=== PATIENT | female | born 1940 | race Caucasian/White ===

== ENCOUNTER 2017-10-18 19:54 | Emergency (ER) | payer MEDICARE ==
[~2017-10-18] VITALS: Ht 152.4 cm; Wt 72.6 kg
[~2017-10-18 19:54] MED LIST: BENAML10/2 PO; BP MEDS; CYCL10 PO; Glucagon Emergen1 MG; HYDACE5 PO; HYDR1TAB94; INSLIS75I SC; LISI20; METF500; METO50 PO; NEBI5; NITR100CA PO; Nitrostat0.4 MG; OMEP20ER; OXYC10ER PO; Oxybutynin Chlo15 MG; SERT100; [UNRECOGNIZED DRUG - REMARK]
[2017-10-18 21:30] LABS: BASOPHILS ABSOLUTE AUTO 0.02 K/mm3 (0.00-0.23); BASOPHILS PERCENT AUTO 0 % (0-2); EOSINOPHILS ABSOLUTE AUTO 0.03 K/mm3 (0.00-0.68); EOSINOPHILS PERCENT AUTO 0 % (0-6); Hematocrit 38.3 % (33.0-51.0); IMMATURE GRAN ABSOLUTE AUTO 0.05 K/mm3 (0.00-0.10); IMMATURE GRAN PERCENT AUTO 1 % (0-1); LYMPHOCYTES ABSOLUTE AUTO 1.87 K/mm3 (0.84-5.20); LYMPHOCYTES PERCENT AUTO 23 % (21-46); MONOCYTES PERCENT AUTO 6 % (4-13); Mean Corpuscular HGB 29.5 pg (26.0-34.0); Mean Corpuscular HGB Conc 33.9 g/dL (31.5-36.5); Mean Corpuscular Volume 87 fL (80-100); Mean Platelet Volume 10.9 fL (9.1-12.4); NEUTROPHILS ABSOLUTE AUTO 5.67 K/mm3 (1.96-9.15); NEUTROPHILS PERCENT AUTO 70 % (41-73); Platelet Count 219 K/mm3 (150-400); RDW Coefficient Variation 13.4 % (11.7-14.2); RDW Standard Deviation 42.4 fL (35.1-46.3); Red Blood Cell Count 4.41 M/mm3 (3.80-5.20); White Blood Cell Count 8.14 K/mm3 (4.00-11.30)
[2017-10-18 21:52] LABS: Alanine Aminotransfer (ALT/SGP 20 U/L (12-78); Albumin, Blood 3.2 g/dL (3.4-5.0); Albumin/Globulin Ratio 0.8 (0.8-1.8); Alk Phos 112 U/L (50-136); Anion Gap 9 mmol/L (6-16); Aspartate Aminotrans (AST/SGOT 10 U/L (12-37); Bilirubin, Total 0.8 mg/dL (0.1-1.0); Blood Urea Nitrogen 20 mg/dL (8-24); Bun/Creatinine Ratio 22.8 (12.0-20.0); CO2, Blood 26 mmol/L (21-32); Calcium, Blood 9.2 mg/dL (8.5-10.1); Chloride, Blood 104 mmol/L (98-108); Creatinine, Blood 0.88 mg/dL (0.40-1.00); Globulin, Blood 3.9 g/dL (2.2-4.0); Glomerular Filtration Rate >60 (60-); Glucose, Blood 264 mg/dL (70-99); Magnesium, Blood 1.4 mg/dL (1.6-2.4); Potassium, Blood 4.2 mmol/L (3.5-5.5); Sodium, Blood 139 mmol/L (136-145); Total Protein, Blood 7.1 g/dL (6.4-8.2); Troponin I <0.015 ng/mL (0.000-0.040)
[2017-10-18 22:01] LABS: Beta-hydroxybutyrate 0.8 mg/dL (0.2-2.8)
[2017-10-18 22:06] LABS: Source, Urine Voided
[2017-10-18 22:12] LABS: Bilirubin, Urine Neg (Neg); Blood, Urine 1+ (Neg); Glucose Qualitative, Urine 4+ (Neg); Ketones, Urine Neg (Neg); Leukocyte Esterase, Urine Neg (Neg); Nitrite, Urine Neg (Neg); Protein, Urine 3+ (Neg); Urobilinogen, Urine NORM (Normal)
[2017-10-18 22:24] LABS: Appearance, Urine Clear (Clear); Color, Urine Yellow (P-Yellow)
[2017-10-18 22:25] LABS: Bacteria Not Seen /hpf; Red Blood Cells, Urine Rare /hpf (0-2); Squamous Epithelial Cells Few /hpf (Few); White Blood Cells, Urine Not Seen /hpf (0-5)
[2017-10-18 22:26] LABS: Hyaline Casts 0-2 /lpf (0-2)
[2017-10-18 23:21] LABS: Influenza A Negative (NEGATIVE); Influenza B Negative (NEGATIVE)
[2017-10-19] MEDS ORDERED: Zofran8 MG PO (01:26)
[2017-10-19] MEDS ORDERED: HYDR1TAB94 PO (01:26)
== END 2017-10-19 02:10 | disposition home or self-care (01) ==
LOC: ER 19:54
PROVIDERS: Emergency Medicine
DX: E11.65 Type 2 diabetes mellitus with hyperglycemia (principal); R11.2 Nausea with vomiting, unspecified; R19.7 Diarrhea, unspecified; Z88.0 Allergy status to penicillin; Z88.2 Allergy status to sulfonamides; Z88.8 Allergy status to other drugs, medicaments and biological substances; Z79.4 Long term (current) use of insulin; Z79.899 Other long term (current) drug therapy; Z79.891 Long term (current) use of opiate analgesic; Z79.84 Long term (current) use of oral hypoglycemic drugs; Z87.891 Personal history of nicotine dependence
CPT/HCPCS: 36415; 71046; 80053; 81001; 82010; 82947; 83735; 84443; 84484; 85025; 87804; 93005; 93010; 96361; 96374; 96375; 99284; J2405; J3490; J7030

== ENCOUNTER → 2017-12-30 | Outpatient (CLI) | payer MEDICARE ==
[~2017-12-30] MED LIST changes: +HYDR1TAB94 PO; +Zofran8 MG PO
[2017-12-30 12:25] LABS: BASOPHILS ABSOLUTE AUTO 0.05 K/mm3 (0.00-0.23); BASOPHILS PERCENT AUTO 1 % (0-2); EOSINOPHILS PERCENT AUTO 1 % (0-6); Hematocrit 42.8 % (33.0-51.0); Hemoglobin 14.8 g/dL (11.5-16.0); IMMATURE GRAN ABSOLUTE AUTO 0.01 K/mm3 (0.00-0.10); IMMATURE GRAN PERCENT AUTO 0 % (0-1); LYMPHOCYTES ABSOLUTE AUTO 2.89 K/mm3 (0.84-5.20); LYMPHOCYTES PERCENT AUTO 35 % (21-46); MONOCYTES ABSOLUTE AUTO 0.58 K/mm3 (0.16-1.47); MONOCYTES PERCENT AUTO 7 % (4-13); Mean Corpuscular HGB 29.9 pg (26.0-34.0); Mean Corpuscular HGB Conc 34.6 g/dL (31.5-36.5); Mean Corpuscular Volume 87 fL (80-100); Mean Platelet Volume 11.7 fL (9.1-12.4); NEUTROPHILS ABSOLUTE AUTO 4.67 K/mm3 (1.96-9.15); NEUTROPHILS PERCENT AUTO 56 % (41-73); Platelet Count 189 K/mm3 (150-400); RDW Standard Deviation 40.9 fL (35.1-46.3); Red Blood Cell Count 4.95 M/mm3 (3.80-5.20)
[2017-12-30 12:36] LABS: Bun/Creatinine Ratio 16.7 (12.0-20.0); Creatinine, Blood 1.5 mg/dL (0.40-1.00); Potassium, Blood 5.2 mmol/L (3.5-5.5)
== END | disposition home or self-care (01) ==
LOC: LAB EV 12:21 → LAB SHORT 12:21
PROVIDERS: Family Medicine
DX: E11.65 Type 2 diabetes mellitus with hyperglycemia (principal)
CPT/HCPCS: 80048; 85025

== ENCOUNTER 2018-07-10 18:39 | Emergency (ER) | payer MEDICARE ==
[~2018-07-10] VITALS: Ht 154.9 cm; Wt 70.3 kg
[~2018-07-10 18:39] MED LIST changes: +ACET325 PO; +ALEN70 PO; +ATOR80 PO; -BENAML10/2 PO; +Humalog100 UNIT/1 SC; -INSLIS75I SC; +INSULANPEN SC; +Lotrel 5-40 MG1 EACH PO; -METF500; +METF500C PO; +METO50ER PO; +MIRT15 PO; -OMEP20ER; +OMEPRAZOLE MAGN20 MG PO
[2018-07-10 20:01] LABS: BASOPHILS ABSOLUTE AUTO 0.07 K/mm3 (0.00-0.23); BASOPHILS PERCENT AUTO 1 % (0-2); EOSINOPHILS ABSOLUTE AUTO 0.17 K/mm3 (0.00-0.68); EOSINOPHILS PERCENT AUTO 2 % (0-6); Hematocrit 38.3 % (33.0-51.0); Hemoglobin 12.5 g/dL (11.5-16.0); IMMATURE GRAN ABSOLUTE AUTO 0.02 K/mm3 (0.00-0.10); IMMATURE GRAN PERCENT AUTO 0 % (0-1); LYMPHOCYTES ABSOLUTE AUTO 2.88 K/mm3 (0.84-5.20); LYMPHOCYTES PERCENT AUTO 32 % (21-46); MONOCYTES ABSOLUTE AUTO 0.75 K/mm3 (0.16-1.47); MONOCYTES PERCENT AUTO 8 % (4-13); Mean Corpuscular HGB 29.1 pg (26.0-34.0); Mean Corpuscular HGB Conc 32.6 g/dL (31.5-36.5); Mean Corpuscular Volume 89 fL (80-100); NEUTROPHILS ABSOLUTE AUTO 5.16 K/mm3 (1.96-9.15); NEUTROPHILS PERCENT AUTO 57 % (41-73); Platelet Count 177 K/mm3 (150-400); RDW Coefficient Variation 13.2 % (11.7-14.2); RDW Standard Deviation 43.5 fL (35.1-46.3); White Blood Cell Count 9.05 K/mm3 (4.00-11.30)
[2018-07-10 20:19] LABS: Albumin, Blood 3.1 g/dL (3.4-5.0); Albumin/Globulin Ratio 0.9 (0.8-1.8); Bilirubin, Total 0.5 mg/dL (0.1-1.0); Bun/Creatinine Ratio 20.6 (12.0-20.0); Calcium, Blood 8.7 mg/dL (8.5-10.1); Creatinine, Blood 1.07 mg/dL (0.40-1.00); Globulin, Blood 3.6 g/dL (2.2-4.0); Potassium, Blood 4.9 mmol/L (3.5-5.5); Total Protein, Blood 6.7 g/dL (6.4-8.2)
[2018-07-10 20:22] LABS: Base Excess Venous -1.5 mmol/L; Bicarbonate Venous 22.8 mmol/L (24.0-30.0); PCO2 Venous 48.1 mmHg (38-42); PO2 Venous 65.3 mmHg (38-42); pH Blood Venous 7.32 (7.34-7.37)
== END 2018-07-10 21:23 | disposition home or self-care (01) ==
LOC: ER 18:39
PROVIDERS: Emergency Medicine; Physician Assistant
DX: E11.65 Type 2 diabetes mellitus with hyperglycemia (principal); N28.9 Disorder of kidney and ureter, unspecified; Z88.0 Allergy status to penicillin; Z88.2 Allergy status to sulfonamides; Z88.8 Allergy status to other drugs, medicaments and biological substances; Z79.899 Other long term (current) drug therapy; Z79.4 Long term (current) use of insulin
CPT/HCPCS: 80053; 82010; 82803; 82947; 83036; 85025; 96360; 96361; 99285-25; J1815; J7030

== ENCOUNTER 2018-10-31 14:10 | Observation (INO) | payer MEDICARE ==
[~2018-10-31] VITALS: Ht 154.9 cm; Wt 66.0 kg
[~2018-10-31 14:10] MED LIST changes: -MIRT15ST PO; -SERT100 PO
[2018-10-31 14:39] LABS: Source, Urine Clean Catch
[2018-10-31 14:43] LABS: BASOPHILS ABSOLUTE AUTO 0.05 K/mm3 (0.00-0.23); BASOPHILS PERCENT AUTO 1 % (0-2); EOSINOPHILS ABSOLUTE AUTO 0.07 K/mm3 (0.00-0.68); EOSINOPHILS PERCENT AUTO 1 % (0-6); Hematocrit 42.7 % (33.0-51.0); IMMATURE GRAN ABSOLUTE AUTO 0.02 K/mm3 (0.00-0.10); IMMATURE GRAN PERCENT AUTO 0 % (0-1); LYMPHOCYTES PERCENT AUTO 36 % (21-46); MONOCYTES ABSOLUTE AUTO 0.53 K/mm3 (0.16-1.47); MONOCYTES PERCENT AUTO 7 % (4-13); Mean Corpuscular HGB 29.2 pg (26.0-34.0); Mean Corpuscular HGB Conc 32.8 g/dL (31.5-36.5); Mean Platelet Volume 11.1 fL (9.1-12.4); NEUTROPHILS ABSOLUTE AUTO 4.27 K/mm3 (1.96-9.15); NEUTROPHILS PERCENT AUTO 55 % (41-73); Platelet Count 196 K/mm3 (150-400); RDW Coefficient Variation 12.8 % (11.7-14.2); Red Blood Cell Count 4.79 M/mm3 (3.80-5.20); White Blood Cell Count 7.74 K/mm3 (4.00-11.30)
[2018-10-31 14:45] LABS: Bilirubin, Urine Neg (Neg); Blood, Urine Neg (Neg); Glucose Qualitative, Urine 4+ (Neg); Ketones, Urine Neg (Neg); Leukocyte Esterase, Urine Neg (Neg); Nitrite, Urine Neg (Neg); Protein, Urine Neg (Neg); Specific Gravity, Urine 1.015 (1.003-1.022); Urobilinogen, Urine NORM (Normal)
[2018-10-31 14:51] LABS: Mean Corpuscular Volume 89 fL (80-100)
[2018-10-31 14:52] LABS: Appearance, Urine Clear (Clear); Color, Urine Yellow (P-Yellow)
[2018-10-31 15:08] LABS: Alanine Aminotransfer (ALT/SGP 18 U/L (12-78); Albumin, Blood 3.5 g/dL (3.4-5.0); Alk Phos 124 U/L (50-136); Anion Gap 8 mmol/L (6-16); Aspartate Aminotrans (AST/SGOT 11 U/L (12-37); Bilirubin, Total 1.1 mg/dL (0.1-1.0); Blood Urea Nitrogen 26 mg/dL (8-24); Bun/Creatinine Ratio 28.1 (12.0-20.0); CO2, Blood 22 mmol/L (21-32); Calcium, Blood 8.3 mg/dL (8.5-10.1); Chloride, Blood 100 mmol/L (98-108); Creatinine, Blood 0.93 mg/dL (0.40-1.00); Globulin, Blood 3.5 g/dL (2.2-4.0); Glomerular Filtration Rate >60 (60-); Glucose, Blood 535 mg/dL (70-99); Potassium, Blood 4.4 mmol/L (3.5-5.5); Sodium, Blood 130 mmol/L (136-145)
[2018-10-31 15:26] LABS: Base Excess Venous -1.7 mmol/L; Bicarbonate Venous 22.3 mmol/L (24.0-30.0); PCO2 Venous 47.6 mmHg (38-42); PO2 Venous 44.7 mmHg (38-42); pH Blood Venous 7.32 (7.34-7.37)
--- NOTE | 2018-10-31 19:45 | NUR ---
SHIFT SUMMARY PT ARRIVED FROM ER AT 1800. PT ALERT AND ORIENTED X3 BUT FORGETFUL WITH SOME MEMORY LOSS. PT STATED NO PAIN AT THIS TIME. AMBULATED TO BED INDEPENDENTLY. BED IN LOWEST POSITION, CALL LIGHT IN REACH, PT ORIENTED TO ROOM. IV IN R. AC INFUSING WITH LACTATED RINGERS. NSR RATE 65 PER CELERY CUTTER. MURMUR NOTED ON AUSCULTATION. BILATERAL LOWER EXTREMITY TRACE EDEMA NOTED. REPORT PROVIDED TO CORRECTIONAL PROBATION OFFICER RN.
[2018-11-01 04:39] LABS: Anion Gap 3 mmol/L (6-16); Blood Urea Nitrogen 20 mg/dL (8-24); Bun/Creatinine Ratio 23.6 (12.0-20.0); CO2, Blood 28 mmol/L (21-32); Calcium, Blood 8.9 mg/dL (8.5-10.1); Chloride, Blood 113 mmol/L (98-108); Creatinine, Blood 0.85 mg/dL (0.40-1.00); Glomerular Filtration Rate >60 (60-); Glucose, Blood 143 mg/dL (70-99); Potassium, Blood 4.4 mmol/L (3.5-5.5); Sodium, Blood 144 mmol/L (136-145)
--- NOTE | 2018-11-01 05:19 | NUR ---
SHIFT SUMMARY: PATIENT BLOOD SUGARS RANGING FROM FROM LOW 100'S TO OVER 300, PATIENT TEARFULL AND STATING SHE DOES NOT UNDERSTAND WHY HER BLOOD SUGARS ARE OUT OF CONTROL. PATIENT COMPLIANT, CALL LIGHT WITHIN REACH AND USED APPROPRIATLY, BED LOW AND LOCKED, VSS.
--- NOTE | 2018-11-01 17:29 | NUR ---
Shift Summary PT HAS BEEN PLEASANT, A&O X3 WITH BOUTS OF CONFUSION, AND FORGETFULNESS. SON AT BEDSIDE. BLOOD SUGARS HAVE BEEN CONTROLLED BETWEEN 85 AND 123 THROUGHOUT SHIFT. PT AMBULATING SBA TO RESTROOM. SOCIAL SERVICE CONSULT PUT IN, FAMILY HAS QUESTIONS ABOUT DISCHARGE OPTIONS. BED IN LOW POSITION, CALL LIGHT IN REACH, PT ORIENTED TO ROOM.
--- NOTE | 2018-11-02 01:10 | NUR ---
discussed dm11 diete with family and pt, needs more training/information still not comfortable assessing own carbo intake, pt states she is feeling depressed r/deaths and losses in family wondering about snf when ready to leave [facility] will pass on to day shift as well as continue to teach and inform pt while assisting and assessing them
[2018-11-02 04:39] LABS: Anion Gap 7 mmol/L (6-16); Blood Urea Nitrogen 15 mg/dL (8-24); Bun/Creatinine Ratio 17.5 (12.0-20.0); CO2, Blood 22 mmol/L (21-32); Calcium, Blood 8.5 mg/dL (8.5-10.1); Chloride, Blood 116 mmol/L (98-108); Creatinine, Blood 0.86 mg/dL (0.40-1.00); Glomerular Filtration Rate >60 (60-); Glucose, Blood 93 mg/dL (70-99); Potassium, Blood 4.2 mmol/L (3.5-5.5); Sodium, Blood 145 mmol/L (136-145)
--- NOTE | 2018-11-02 06:56 | NUR ---
a+o but concerned about how to determine what her insulin doseage should be, needs education r/ counting carbs, call light in reach, saline locked, room air, walking rounds completed with day staff
--- NOTE | 2018-11-02 13:46 | NUR ---
Patient was sitting on the side of her bed about to eat lunch when I entered the patient's room. Patient openly shared about her medical history, her belief system, the loss of two of her daughters and the her possible change in living arrangements. I listened epathically, provided grief support, emotional support, companionship and prayer. Patient responded well and displayed evidence of an elevated mood.
[2018-11-02] MEDS ORDERED: MIRT15ST PO ×2 (14:28)
[2018-11-02] MEDS ORDERED: SERT100 PO ×2 (14:29)
--- NOTE | 2018-11-02 18:34 | NUR ---
SHIFT SUMMARY. 1829 PT DISCHARGED HOME VIA PERSONAL VEHICLE ACCOMPANIED AND DRIVEN BY SON. PT ESCORTED TO FACILITY ENTRANCE VIA W/C BY TRACK CAR OPERATOR. IV REMOVED. D/C PAPERWORK GIVEN TO PT AND COPY PROVIDED. DIABETIC AND INSULIN EDUCATION PROVIDED. SON IN ROOM AND ENGAGED WITH EDUCATION. NEW RX FAXED TO [facility] PER PT REQUEST. PT DENIED PAIN, SOB, N/V DURING SHIFT. NO NEW CHANGES.
== END 2018-11-02 18:22 | disposition home or self-care (01) ==
LOC: ER 14:10 → PCU 14:11 → ERHOLD 14:11 → ER 14:11 → PCU 14:11 → ERHOLD 17:49 → PCU 17:49
PROVIDERS: Emergency Medicine; Internal Medicine Gastroenterology; ADMIT Internal Medicine Endocrinology, Diabetes & Metabolism
DX: E11.00 Type 2 diabetes mellitus with hyperosmolarity without nonketotic hyperglycemic-hyperosmolar coma (NKHHC) (principal); G93.41 Metabolic encephalopathy; E11.65 Type 2 diabetes mellitus with hyperglycemia; N17.9 Acute kidney failure, unspecified; E86.9 Volume depletion, unspecified; E87.1 Hypo-osmolality and hyponatremia; G31.84 Mild cognitive impairment of uncertain or unknown etiology; I35.2 Nonrheumatic aortic (valve) stenosis with insufficiency; I51.7 Cardiomegaly; F32.9 Major depressive disorder, single episode, unspecified; G47.00 Insomnia, unspecified; Z87.891 Personal history of nicotine dependence; Z88.0 Allergy status to penicillin; Z88.2 Allergy status to sulfonamides; Z79.899 Other long term (current) drug therapy; Z79.84 Long term (current) use of oral hypoglycemic drugs
CPT/HCPCS: 36415; 80048; 80053; 81003; 82010; 82040; 82803; 82947; 83930; 85025; 96360; 97116; 97161; 99285-25; J1650; J1815; J3480; J7120

== ENCOUNTER → 2018-10-31 | Outpatient (CLI) | payer MEDICARE ==
[~2018-10-31] MED LIST changes: +MIRT15ST PO; +SERT100 PO
[2018-10-31 12:49] LABS: BASOPHILS ABSOLUTE AUTO 0.05 K/mm3 (0.00-0.23); BASOPHILS PERCENT AUTO 1 % (0-2); EOSINOPHILS ABSOLUTE AUTO 0.07 K/mm3 (0.00-0.68); EOSINOPHILS PERCENT AUTO 1 % (0-6); Hematocrit 43.1 % (33.0-51.0); Hemoglobin 14.9 g/dL (11.5-16.0); IMMATURE GRAN ABSOLUTE AUTO 0.02 K/mm3 (0.00-0.10); IMMATURE GRAN PERCENT AUTO 0 % (0-1); LYMPHOCYTES ABSOLUTE AUTO 2.59 K/mm3 (0.84-5.20); LYMPHOCYTES PERCENT AUTO 36 % (21-46); MONOCYTES PERCENT AUTO 7 % (4-13); Mean Corpuscular HGB 29.4 pg (26.0-34.0); Mean Corpuscular HGB Conc 34.6 g/dL (31.5-36.5); Mean Corpuscular Volume 85 fL (80-100); Mean Platelet Volume 11.3 fL (9.1-12.4); NEUTROPHILS ABSOLUTE AUTO 4.07 K/mm3 (1.96-9.15); NEUTROPHILS PERCENT AUTO 56 % (41-73); Platelet Count 193 K/mm3 (150-400); RDW Coefficient Variation 13.1 % (11.7-14.2); RDW Standard Deviation 40.3 fL (35.1-46.3); Red Blood Cell Count 5.07 M/mm3 (3.80-5.20)
[2018-10-31 12:59] LABS: Albumin, Blood 3.8 g/dL (3.4-5.0); Bilirubin, Total 1.3 mg/dL (0.1-1.0); Bun/Creatinine Ratio 20.1 (12.0-20.0); Calcium, Blood 9.1 mg/dL (8.5-10.1); Creatinine, Blood 1.54 mg/dL (0.40-1.00); Potassium, Blood 5.1 mmol/L (3.5-5.5); Total Protein, Blood 7.8 g/dL (6.4-8.2)
== END ==
LOC: LAB SHORT 12:42 → LAB EV 12:42
PROVIDERS: Emergency Medicine
DX: R73.9 Hyperglycemia, unspecified (principal)
CPT/HCPCS: 80053; 82010; 85025

== ENCOUNTER → 2020-06-28 | Outpatient (CLI) | payer MEDICARE ==
[~2020-06-28] MED LIST changes: +MIRT15ST PO; +SERT100 PO
[2020-06-28 16:24] LABS: BASOPHILS ABSOLUTE AUTO 0.05 K/mm3 (0.00-0.23); BASOPHILS PERCENT AUTO 1 % (0-2); EOSINOPHILS PERCENT AUTO 3 % (0-6); Hematocrit 39.6 % (33.0-51.0); Hemoglobin 13.6 g/dL (11.5-16.0); IMMATURE GRAN ABSOLUTE AUTO 0.02 K/mm3 (0.00-0.10); IMMATURE GRAN PERCENT AUTO 0 % (0-1); LYMPHOCYTES ABSOLUTE AUTO 2.16 K/mm3 (0.84-5.20); LYMPHOCYTES PERCENT AUTO 29 % (21-46); MONOCYTES ABSOLUTE AUTO 0.67 K/mm3 (0.16-1.47); MONOCYTES PERCENT AUTO 9 % (4-13); Mean Corpuscular HGB 28.8 pg (26.0-34.0); Mean Corpuscular HGB Conc 34.3 g/dL (31.5-36.5); Mean Corpuscular Volume 84 fL (80-100); NEUTROPHILS ABSOLUTE AUTO 4.43 K/mm3 (1.96-9.15); NEUTROPHILS PERCENT AUTO 59 % (41-73); Platelet Count 227 K/mm3 (150-400); RDW Coefficient Variation 13.1 % (11.7-14.2); Red Blood Cell Count 4.72 M/mm3 (3.80-5.20); White Blood Cell Count 7.53 K/mm3 (4.00-11.30)
[2020-06-28 16:29] LABS: Bun/Creatinine Ratio 13.6 (12.0-20.0); Calcium, Blood 9.3 mg/dL (8.5-10.1); Creatinine, Blood 1.25 mg/dL (0.40-1.00); Potassium, Blood 4.2 mmol/L (3.5-5.5)
== END | disposition home or self-care (01) ==
LOC: LAB SHORT 16:19 → PLD 16:19
PROVIDERS: Family Medicine
DX: R73.9 Hyperglycemia, unspecified (principal)
CPT/HCPCS: 80048; 85025

== ENCOUNTER 2020-08-22 17:05 | Emergency (ER) | payer MEDICARE ==
[~2020-08-22] VITALS: Ht 152.4 cm; Wt 54.4 kg
[~2020-08-22 17:05] MED LIST changes: -ATOR80 PO; -Humalog100 UNIT/1 SC; -INSULANPEN SC; -METO50ER PO; -OMEPRAZOLE MAGN20 MG PO; -SERT100 PO
[2020-08-22 17:32] LABS: BASOPHILS ABSOLUTE AUTO 0.06 K/mm3 (0.00-0.23); BASOPHILS PERCENT AUTO 1 % (0-2); EOSINOPHILS ABSOLUTE AUTO 0.09 K/mm3 (0.00-0.68); EOSINOPHILS PERCENT AUTO 1 % (0-6); Hematocrit 42.3 % (33.0-51.0); Hemoglobin 13.4 g/dL (11.5-16.0); IMMATURE GRAN ABSOLUTE AUTO 0.01 K/mm3 (0.00-0.10); IMMATURE GRAN PERCENT AUTO 0 % (0-1); LYMPHOCYTES ABSOLUTE AUTO 2.58 K/mm3 (0.84-5.20); LYMPHOCYTES PERCENT AUTO 36 % (21-46); MONOCYTES ABSOLUTE AUTO 0.57 K/mm3 (0.16-1.47); MONOCYTES PERCENT AUTO 8 % (4-13); Mean Corpuscular HGB Conc 31.7 g/dL (31.5-36.5); Mean Corpuscular Volume 88 fL (80-100); Mean Platelet Volume 11.6 fL (9.1-12.4); NEUTROPHILS ABSOLUTE AUTO 3.94 K/mm3 (1.96-9.15); NEUTROPHILS PERCENT AUTO 54 % (41-73); Platelet Count 180 K/mm3 (150-400); RDW Coefficient Variation 13.6 % (11.7-14.2); RDW Standard Deviation 44.8 fL (35.1-46.3); Red Blood Cell Count 4.79 M/mm3 (3.80-5.20); White Blood Cell Count 7.25 K/mm3 (4.00-11.30)
[2020-08-22 17:58] LABS: Albumin, Blood 3.6 g/dL (3.4-5.0); Bilirubin, Total 0.7 mg/dL (0.1-1.0); Bun/Creatinine Ratio 25.5 (12.0-20.0); Calcium, Blood 9.1 mg/dL (8.5-10.1); Creatinine, Blood 1.02 mg/dL (0.40-1.00); Globulin, Blood 3.7 g/dL (2.2-4.0); Potassium, Blood 5.5 mmol/L (3.5-5.5); Total Protein, Blood 7.3 g/dL (6.4-8.2)
[2020-08-22 18:19] LABS: Glucose, Blood 609 mg/dL (70-99)
[2020-08-22 19:14] LABS: Source, Urine Clean Catch
[2020-08-22 19:44] LABS: Appearance, Urine Clear (Clear); Bilirubin, Urine Neg (Neg); Blood, Urine Neg (Neg); Color, Urine Yellow (P-Yellow); Glucose Qualitative, Urine 4+ (Neg); Ketones, Urine Neg (Neg); Leukocyte Esterase, Urine Neg (Neg); Nitrite, Urine Neg (Neg); Protein, Urine Neg (Neg); Urobilinogen, Urine NORM (Normal)
== END 2020-08-22 20:08 | disposition home or self-care (01) ==
LOC: ER 17:05
PROVIDERS: Emergency Medicine; Physician Assistant
DX: E11.65 Type 2 diabetes mellitus with hyperglycemia (principal); Z79.899 Other long term (current) drug therapy; Z79.4 Long term (current) use of insulin; Z88.0 Allergy status to penicillin; Z88.2 Allergy status to sulfonamides; Z91.02 Food additives allergy status
CPT/HCPCS: 36415; 80053; 81003; 82947; 85025; 99284; J1815

== ENCOUNTER 2020-09-29 12:41 | Emergency (ER) | payer MEDICARE ==
[~2020-09-29] VITALS: Ht 152.4 cm; Wt 69.0 kg
[2020-09-29 13:24] LABS: BASOPHILS ABSOLUTE AUTO 0.03 K/mm3 (0.00-0.23); BASOPHILS PERCENT AUTO 1 % (0-2); EOSINOPHILS PERCENT AUTO 2 % (0-6); Hematocrit 40.3 % (33.0-51.0); Hemoglobin 13.9 g/dL (11.5-16.0); IMMATURE GRAN ABSOLUTE AUTO 0.01 K/mm3 (0.00-0.10); IMMATURE GRAN PERCENT AUTO 0 % (0-1); LYMPHOCYTES ABSOLUTE AUTO 2.17 K/mm3 (0.84-5.20); LYMPHOCYTES PERCENT AUTO 38 % (21-46); MONOCYTES ABSOLUTE AUTO 0.39 K/mm3 (0.16-1.47); MONOCYTES PERCENT AUTO 7 % (4-13); Mean Corpuscular HGB 29.4 pg (26.0-34.0); Mean Corpuscular HGB Conc 34.5 g/dL (31.5-36.5); Mean Corpuscular Volume 85 fL (80-100); Mean Platelet Volume 11.5 fL (9.1-12.4); NEUTROPHILS ABSOLUTE AUTO 2.97 K/mm3 (1.96-9.15); NEUTROPHILS PERCENT AUTO 52 % (41-73); Platelet Count 194 K/mm3 (150-400); RDW Coefficient Variation 14.1 % (11.7-14.2); RDW Standard Deviation 43.8 fL (35.1-46.3); Red Blood Cell Count 4.72 M/mm3 (3.80-5.20); White Blood Cell Count 5.67 K/mm3 (4.00-11.30)
[2020-09-29 13:27] LABS: Base Excess Venous -0.8 mmol/L; Bicarbonate Venous 23.3 mmol/L (24.0-30.0); PCO2 Venous 45.5 mmHg (38-42); pH Blood Venous 7.35 (7.34-7.37)
[2020-09-29 13:35] LABS: Source, Urine Clean Catch
[2020-09-29 13:41] LABS: Alanine Aminotransfer (ALT/SGP 17 U/L (12-78); Albumin, Blood 3.4 g/dL (3.4-5.0); Alk Phos 105 U/L (50-136); Anion Gap 9 mmol/L (6-16); Aspartate Aminotrans (AST/SGOT 12 U/L (12-37); Bilirubin, Total 0.7 mg/dL (0.1-1.0); Blood Urea Nitrogen 13 mg/dL (8-24); Bun/Creatinine Ratio 14.8 (12.0-20.0); CO2, Blood 23 mmol/L (21-32); Calcium, Blood 9.2 mg/dL (8.5-10.1); Chloride, Blood 105 mmol/L (98-108); Creatinine, Blood 0.88 mg/dL (0.40-1.00); Globulin, Blood 3.4 g/dL (2.2-4.0); Glomerular Filtration Rate >60 (60-); Glucose, Blood 519 mg/dL (70-99); Potassium, Blood 4.6 mmol/L (3.5-5.5); Sodium, Blood 137 mmol/L (136-145); Total Protein, Blood 6.8 g/dL (6.4-8.2)
[2020-09-29] MEDS ORDERED: INSULANPEN SC (13:49)
[2020-09-29] MEDS ORDERED: AMLODIPINE-BEN1 EACH PO (13:49)
[2020-09-29] MEDS ORDERED: NOVOLOG FL100 UNIT/3 SC (13:50)
[2020-09-29] MEDS ORDERED: OMEPRAZOLE MAGN20 MG PO (13:50)
[2020-09-29] MEDS ORDERED: ATOR80 PO (13:50)
[2020-09-29 13:51] LABS: Appearance, Urine Clear (Clear); Bilirubin, Urine Neg (Neg); Blood, Urine 1+ (Neg); Color, Urine Yellow (P-Yellow); Glucose Qualitative, Urine 4+ (Neg); Ketones, Urine 2+ (Neg); Leukocyte Esterase, Urine Neg (Neg); Nitrite, Urine Neg (Neg); Protein, Urine 3+ (Neg); Urobilinogen, Urine NORM (Normal)
[2020-09-29] MEDS ORDERED: SERT100 PO (13:51)
[2020-09-29] MEDS ORDERED: METO50ER PO (13:51)
[2020-09-29] MEDS ORDERED: METFORMIN HCL500 M3 PO (13:52)
[2020-09-29 13:58] LABS: Red Blood Cells, Urine Not Seen /hpf (0-2); White Blood Cells, Urine 0-2 /hpf (0-5)
[2020-09-29 13:59] LABS: Bacteria Rare /hpf; Squamous Epithelial Cells Rare /hpf (Few)
== END 2020-09-29 16:21 | disposition home or self-care (01) ==
LOC: ER 12:41
PROVIDERS: Emergency Medicine
DX: E11.65 Type 2 diabetes mellitus with hyperglycemia (principal); Z87.891 Personal history of nicotine dependence; Z88.0 Allergy status to penicillin; Z88.2 Allergy status to sulfonamides; Z79.899 Other long term (current) drug therapy; Z79.4 Long term (current) use of insulin
CPT/HCPCS: 36415; 71045; 80053; 81001; 82010; 82803; 82947; 85025; 93005; 93010; 99285-25; J1815; J7030

== ENCOUNTER 2021-02-12 15:07 | Emergency (ER) | payer MEDICARE ==
[~2021-02-12] VITALS: Ht 165.1 cm; Wt 63.5 kg
[~2021-02-12 15:07] MED LIST changes: +AMLODIPINE-BEN1 EACH PO; +ATOR80 PO; +INSULANPEN SC; +METFORMIN HCL500 M3 PO; +METO50ER PO; +NOVOLOG FL100 UNIT/3 SC; +OMEPRAZOLE MAGN20 MG PO; +SERT100 PO
[2021-02-12 15:28] LABS: BASOPHILS ABSOLUTE AUTO 0.05 K/mm3 (0.00-0.23); BASOPHILS PERCENT AUTO 1 % (0-2); EOSINOPHILS ABSOLUTE AUTO 0.16 K/mm3 (0.00-0.68); EOSINOPHILS PERCENT AUTO 2 % (0-6); Hematocrit 41.1 % (33.0-51.0); Hemoglobin 14.2 g/dL (11.5-16.0); IMMATURE GRAN ABSOLUTE AUTO 0.03 K/mm3 (0.00-0.10); IMMATURE GRAN PERCENT AUTO 0 % (0-1); LYMPHOCYTES ABSOLUTE AUTO 3.38 K/mm3 (0.84-5.20); LYMPHOCYTES PERCENT AUTO 39 % (21-46); MONOCYTES ABSOLUTE AUTO 0.65 K/mm3 (0.16-1.47); MONOCYTES PERCENT AUTO 8 % (4-13); Mean Corpuscular HGB 30.3 pg (26.0-34.0); Mean Corpuscular HGB Conc 34.5 g/dL (31.5-36.5); Mean Corpuscular Volume 88 fL (80-100); Mean Platelet Volume 11.2 fL (9.1-12.4); NEUTROPHILS ABSOLUTE AUTO 4.37 K/mm3 (1.96-9.15); NEUTROPHILS PERCENT AUTO 51 % (41-73); Platelet Count 178 K/mm3 (150-400); RDW Coefficient Variation 13.6 % (11.7-14.2); RDW Standard Deviation 43.9 fL (35.1-46.3); Red Blood Cell Count 4.68 M/mm3 (3.80-5.20); White Blood Cell Count 8.64 K/mm3 (4.00-11.30)
[2021-02-12 16:04] LABS: Albumin, Blood 3.2 g/dL (3.4-5.0); Albumin/Globulin Ratio 0.9 (0.8-1.8); Bilirubin, Total 0.9 mg/dL (0.1-1.0); Bun/Creatinine Ratio 20.8 (12.0-20.0); Calcium, Blood 9.1 mg/dL (8.5-10.1); Creatinine, Blood 0.96 mg/dL (0.40-1.00); Globulin, Blood 3.4 g/dL (2.2-4.0); Potassium, Blood 4.5 mmol/L (3.5-5.5); Total Protein, Blood 6.6 g/dL (6.4-8.2)
[2021-02-12 16:15] LABS: Source, Urine Clean Catch
[2021-02-12 16:17] LABS: Bilirubin, Urine Neg (Neg); Blood, Urine 1+ (Neg); Glucose Qualitative, Urine 3+ (Neg); Ketones, Urine Neg (Neg); Leukocyte Esterase, Urine 3+ (Neg); Nitrite, Urine Neg (Neg); Protein, Urine 2+ (Neg); Urobilinogen, Urine NORM (Normal)
[2021-02-12 16:38] LABS: Appearance, Urine Hazy (Clear); Color, Urine Pale Yellow (P-Yellow)
[2021-02-12 16:39] LABS: Bacteria Few /hpf; Squamous Epithelial Cells Mod /hpf (Few); Transitional Epithelial Cells Few /hpf (0-Rare)
[2021-02-12] MEDS ORDERED: NITR100CA PO (17:37)
== END 2021-02-12 18:00 | disposition home or self-care (01) ==
LOC: ER 15:07
PROVIDERS: Emergency Medicine
DX: N39.0 Urinary tract infection, site not specified (principal); E11.65 Type 2 diabetes mellitus with hyperglycemia; Z79.4 Long term (current) use of insulin; Z79.899 Other long term (current) drug therapy; Z88.0 Allergy status to penicillin; Z88.2 Allergy status to sulfonamides; Z91.02 Food additives allergy status; Z87.891 Personal history of nicotine dependence
CPT/HCPCS: 80053; 81001; 82947; 85025; 87086; 93005; 93010; 99285-25; A9270

== ENCOUNTER 2022-05-31 15:43 | Inpatient (IN) | payer MEDICARE ==
[~2022-05-31] VITALS: Ht 160 cm; Wt 47.0 kg
[2022-05-31 16:17] LABS: Source, Urine Straight Cath
[2022-05-31 16:21] LABS: Appearance, Urine Hazy (Clear); Bilirubin, Urine Neg (Neg); Blood, Urine 4+ (Neg); Color, Urine Yellow (P-Yellow); Glucose Qualitative, Urine 4+ (Neg); Ketones, Urine 2+ (Neg); Leukocyte Esterase, Urine 2+ (Neg); Nitrite, Urine Pos (Neg); Protein, Urine 3+ (Neg); Specific Gravity, Urine 1.015 (1.003-1.022); Urobilinogen, Urine NORM (Normal)
[2022-05-31 16:31] LABS: Bacteria Many /hpf; Squamous Epithelial Cells Few /hpf (Few); White Blood Cells, Urine 25-50 /hpf (0-5)
[2022-05-31 16:39] LABS: U Amphetamine Screen Not Detected; U Barbituate Screen Not Detected; U Benzodiazapine Screen Not Detected; U Buprenorphine Screen Not Detected; U Cannabinoids Screen Not Detected; U Cocaine Screen Not Detected; U Methadone Screen Not Detected; U Methamphetamine Screen Not Detected; U Opiates Screen Not Detected; U Oxycodone Screen Not Detected; U Phencyclidine Screen Not Detected; U Propoxyphene Screen Not Detected
[2022-05-31 16:56] LABS: Base Excess Venous -6.8 mmol/L; Bicarbonate Venous 18.6 mmol/L (24.0-30.0); PCO2 Venous 56.6 mmHg (38-42); pH Blood Venous 7.19 (7.34-7.37)
[2022-05-31] MEDS ORDERED: BASAGLAR K100 UNIT/8 (17:07)
[2022-05-31] MEDS ORDERED: INSULIN AS100 UNIT/8 SC (17:07)
[2022-05-31 17:10] LABS: BASOPHILS ABSOLUTE AUTO 0.03 K/mm3 (0.00-0.23); BASOPHILS PERCENT AUTO 0 % (0-2); EOSINOPHILS PERCENT AUTO 0 % (0-6); Hemoglobin 11.6 g/dL (11.5-16.0); IMMATURE GRAN ABSOLUTE AUTO 0.02 K/mm3 (0.00-0.10); IMMATURE GRAN PERCENT AUTO 0 % (0-1); LYMPHOCYTES ABSOLUTE AUTO 1.49 K/mm3 (0.84-5.20); LYMPHOCYTES PERCENT AUTO 21 % (21-46); MONOCYTES ABSOLUTE AUTO 0.03 K/mm3 (0.16-1.47); MONOCYTES PERCENT AUTO 0 % (4-13); Mean Corpuscular HGB 31.4 pg (26.0-34.0); Mean Corpuscular HGB Conc 32.2 g/dL (31.5-36.5); Mean Corpuscular Volume 98 fL (80-100); Mean Platelet Volume 9.5 fL (9.1-12.4); NEUTROPHILS ABSOLUTE AUTO 5.71 K/mm3 (1.96-9.15); NEUTROPHILS PERCENT AUTO 78 % (41-73); Platelet Count 264 K/mm3 (150-400); RDW Coefficient Variation 14.1 % (11.7-14.2); RDW Standard Deviation 50.2 fL (35.1-46.3); Red Blood Cell Count 3.69 M/mm3 (3.80-5.20); White Blood Cell Count 7.28 K/mm3 (4.00-11.30)
[2022-05-31 17:26] LABS: Influenza A, PCR NEGATIVE (NEGATIVE); Influenza B, PCR NEGATIVE (NEGATIVE); Resp Syncytial Virus, PCR NEGATIVE (NEGATIVE); SARS-Cov-2 (COVID-19) PCR, MMC NEGATIVE (NEGATIVE)
[2022-05-31 17:27] LABS: Albumin/Globulin Ratio 0.8 (0.8-1.8); Bilirubin, Total 1.1 mg/dL (0.1-1.0); Bun/Creatinine Ratio 43.6 (12.0-20.0); Calcium, Blood 9.1 mg/dL (8.5-10.1); Creatinine, Blood 0.94 mg/dL (0.40-1.00); Globulin, Blood 3.8 g/dL (2.2-4.0); Potassium, Blood 4.1 mmol/L (3.5-5.5); Total Protein, Blood 6.8 g/dL (6.4-8.2)
[2022-05-31 17:34] LABS: Free Thyroxine 0.9 ng/dL (0.70-1.60); Triiodothyronine, Free 1.98 pg/mL (2.18-3.98)
--- NOTE | 2022-06-01 01:00 | NUR ---
LEVOPHED AT 8/MIN AND NOT SUSTAINING MAPS >65. NOTIFIED PROVIDER AND NEW ORDERS OBTAINED TO INSERT TEMP MAGANA AND PREPARE FOR CENTRAL LINE INSERTION. PATIENT IS RELAXED, BREATHING WITH BIPAP, AND APPEARS COMFORTABLE. VITAL SIGNS DOCUMENTED ON FLOWSHEET.
[2022-06-01 01:07] LABS: Source, Urine Foley catheter
[2022-06-01 01:09] LABS: Bilirubin, Urine Neg (Neg); Blood, Urine 5+ (Neg); Glucose Qualitative, Urine 3+ (Neg); Ketones, Urine 1+ (Neg); Leukocyte Esterase, Urine 3+ (Neg); Nitrite, Urine Neg (Neg); Protein, Urine 3+ (Neg); Specific Gravity, Urine 1.015 (1.003-1.022); Urobilinogen, Urine NORM (Normal)
[2022-06-01 01:10] LABS: Appearance, Urine Hazy (Clear); Color, Urine Yellow (P-Yellow)
[2022-06-01 01:16] LABS: Bacteria Many /hpf; Squamous Epithelial Cells Rare /hpf (Few); White Blood Cells, Urine TNTC /hpf (0-5)
--- NOTE | 2022-06-01 01:20 | NUR ---
DR MOYER AT BEDSIDE PREPARING FOR CENTRAL LINE INSERTION. TEMP MAGANA IN PLACE AND UA SPECIMEN SENT TO LAB. CALLED KEVIN MEREDITH AND LEFT MESSAGE UPDATING HIM ON HIS MOTHERS STATUS.
[2022-06-01 04:01] LABS: Hematocrit 31.7 % (33.0-51.0); Hemoglobin 9.9 g/dL (11.5-16.0); Mean Corpuscular HGB 30.7 pg (26.0-34.0); Mean Corpuscular HGB Conc 31.2 g/dL (31.5-36.5); Mean Corpuscular Volume 98 fL (80-100); Mean Platelet Volume 10.7 fL (9.1-12.4); Platelet Count 185 K/mm3 (150-400); RDW Coefficient Variation 14.6 % (11.7-14.2); RDW Standard Deviation 52.7 fL (35.1-46.3); Red Blood Cell Count 3.23 M/mm3 (3.80-5.20); White Blood Cell Count 47.61 K/mm3 (4.00-11.30)
[2022-06-01 04:15] LABS: Bun/Creatinine Ratio 35.8 (12.0-20.0); Calcium, Blood 8.4 mg/dL (8.5-10.1); Creatinine, Blood 1.34 mg/dL (0.40-1.00); Potassium, Blood 4.1 mmol/L (3.5-5.5)
[2022-06-01 05:52] LABS: BAND PERCENT MAN 14 % (0-8); BASOPHILS ABSOLUTE MAN 0.47 K/mm3 (0.00-0.23); BASOPHILS PERCENT MAN 1 % (0-2); EOSINOPHILS PERCENT MAN 0 % (0-6); LYMPHOCYTES ABSOLUTE MAN 1.42 K/mm3 (0.84-5.20); LYMPHOCYTES PERCENT MAN 3 % (21-46); METAMYELOCYTE PERCENT MAN 4 % (0-0); MONOCYTES ABSOLUTE MAN 0.95 K/mm3 (0.16-1.47); MONOCYTES PERCENT MAN 2 % (4-13); NEUTROPHILS ABSOLUTE MAN 42.84 K/mm3 (1.96-9.15); SEG NEUTROPHILS PERCENT MAN 76 % (41-73); TOTAL CELLS COUNTED 100
[2022-06-01 07:54] LABS: Base Excess Venous -6.5 mmol/L; Bicarbonate Venous 19.1 mmol/L (24.0-30.0); PCO2 Venous 41.4 mmHg (38-42); pH Blood Venous 7.29 (7.34-7.37)
[2022-06-01 08:09] LABS: Albumin, Blood 2.4 g/dL (3.4-5.0); Albumin/Globulin Ratio 0.6 (0.8-1.8); Bilirubin, Direct 0.4 mg/dL (0.0-0.3); Bilirubin, Indirect 0.4 mg/dL (0.1-0.7); Bilirubin, Total 0.8 mg/dL (0.1-1.0); Globulin, Blood 3.7 g/dL (2.2-4.0); Total Protein, Blood 6.1 g/dL (6.4-8.2)
--- NOTE | 2022-06-01 11:28 | NUR ---
REASSESSMENT PT HAS BEEN OFF PRECEDEX SINCE 924. SHE STILL ONLY WAKES TO TACTILE STIMULI AND QUIETS BACK DOWN ONCE LEFT ALONE. SHE DOES NOT FOLLOW COMMANDS WHEN SHE IS MORE ALERT. SHE HAS A VERY WEAK GAG, SPUTUM SUCTIONED OUT OF THE BACK OF HER THROAT. BIPAP OFF FOR ABOUT 2 HOURS THIS MORNING. PT MAINTAINED SPO2 100% ON RA. BIPAP PUT BACK ON BECAUSE PT IS STILL UNRESPONSIVE AND PT WAS ACIDOTIC PRIOR TO BIPAP THIS MORNING. DISCUSSED IT WITH DR. PRICE WHO SAID TO USE BIPAP LONG PT IS TOLERATING IT, BUT IF SHE STARTS TO WAKE UP AND FIGHT IT IT IS OK TO REMOVE. PT IS SR WITH RATE IN THE 70S. SHE HAS BEEN GOING INTO RHYTHMS THAT HAVE BIGEMINAL PAC. LEVOPHED STILL INFUSING BUT HASN'T NEEDED TO BE TITRATED YET THIS SHIFT. MAGANA WITH SCANT OUTPUT, DR. PRICE AWARE. CHG BATH GIVEN. PT'S FEET WERE CAKED WITH DIRT. ALL THE DIRT CLEANED OFF AND REVEALED A SMALL BRUISE/SORE ON PT'S R FOOT, SEE PICTURES. PT'S LYNETTE AREA REMAINS VERY RED AND IRRITATED, JUST CLEANED WITH SOAP AND WATER INSTEAD OF CHG DUE TO IRRITATION.
--- NOTE | 2022-06-01 12:08 | NUR ---
PT PULLING AT HER BIPAP MASK SO REMOVED IT. PT'S SPO2 95% ON RA, RR 38, MONITORING. PT OPENED HER EYES BRIEFLY BUT STILL NOT FOLLOWING COMMANDS OR RESPONDING TO VOICE.
--- NOTE | 2022-06-01 16:40 | NUR ---
SHIFT SUMMARY PT HAS BECOME MORE ALERT THROUGHOUT THE SHIFT. SHE ANSWERS TO HER NAME AND WILL ANSWER YES OR NO QUESTIONS. SHE IS INCONSISTENT WITH FOLLOWING COMMANDS. HER LUNGS REMAIN CLEAR, RA, OFF OF BIPAP ALL AFTERNOON. SR WITH PAC. REMAINS ON LEVOPHED. ATTEMPTED PO WATER BY TEASPOON THIS EVENING BUT PT WOULDN'T TAKE IT. LOW URINE OUTPUT THROUGHOUT THE SHIFT, MD AWARE. PT'S SON VISITED THIS EVENING AND WAS UPDDATED BY DR. PRICE AND THEN SPOKE WITH PALLIATIVE CARE. PLAN FOR NOW IS TO CONTINUE CURRENT CARE WITHOUT ESCALATING IT IF PT DETIORATES. CONTINUING TO MONITOR.
--- NOTE | 2022-06-01 18:10 | NUR ---
PT BECOMING MORE AND MORE RESTLESS THIS EVENING. HER SON IS AT THE BEDSIDE, BUT PT REPEATEDLY CALLS OUT FOR HIM OR HER MOM ABOUT EVERY 10 SECONDS. PT STARTED TRYING TO CLIMB OUT OF BED, ASKING ANYONE AROUND TO HELP HER "GET OUT OF HERE." PT NOT REDIRECTABLE. SHE APPEARS VERY ANXIOUS AND SCARED, GRABBING TIGHTLY ONTO ANYBODY'S HAND WHEN OFFERED. HR IN THE 110S. CHECKED PT'S GLUCOSE AND IT WAS 54. 1/2 AMP OF D50 GIVEN PT STILL ISN'T SAFE FOR PO. PT STILL AGITATED SO PRECEDEX RESTARTED AT 0.2 MCG/KG/HR. PT STARTED TO RELAX MORE, STILL CALLING OUT BUT NOT TRYING TO CLIMB OUT MUCH AND DOESN'T SEEM PANICKED. WILL CONTINUE TO REASSESS AND TITRATE NEEDED.
--- NOTE | 2022-06-01 18:45 | NUR ---
Met with pt and her son Geovany today. Pt continues on pressers, she was yelling out, "Geovany, Geovany!" occasionally until she fell asleep. Geovany is primary CG for the pt and has been for several years. He reports pt was evaluated at home a week ago by a [facility] [place] for [facility], ordered by her PCP. Geovany states at that time, the RN didn't believe the pt was "quite ready" for hospice. However, this hospitalization has made it apparent, in regard to her cardiac function, she would be appropriate for hospice. At this time, the plan is to see how pt does with current treatment, and when appropriate, will discharge home with [facility].
--- NOTE | 2022-06-01 19:30 | NUR ---
PATIENT IS CONFUSED, AGITATED AND PULLING AT LINES AND VITAL SIGN EQUIPMENT. NOTIFIED PROVIDER AND NEW ORDERS OBTAINED FOR HALDOL IVP AND INCREASED TITRATION PARAMETERS ON PRECEDEX
[2022-06-02 03:51] LABS: Hematocrit 30.8 % (33.0-51.0); Hemoglobin 10.5 g/dL (11.5-16.0); Mean Corpuscular HGB 31.6 pg (26.0-34.0); Mean Corpuscular HGB Conc 34.1 g/dL (31.5-36.5); Mean Platelet Volume 11.4 fL (9.1-12.4); Platelet Count 165 K/mm3 (150-400); RDW Coefficient Variation 14.6 % (11.7-14.2); RDW Standard Deviation 50.2 fL (35.1-46.3); Red Blood Cell Count 3.32 M/mm3 (3.80-5.20)
[2022-06-02 03:59] LABS: Mean Corpuscular Volume 93 fL (80-100)
[2022-06-02 04:02] LABS: White Blood Cell Count 52.86 K/mm3 (4.00-11.30)
[2022-06-02 04:15] LABS: Albumin, Blood 2.2 g/dL (3.4-5.0); Albumin/Globulin Ratio 0.6 (0.8-1.8); Bilirubin, Total 0.9 mg/dL (0.1-1.0); Bun/Creatinine Ratio 37.5 (12.0-20.0); Calcium, Blood 8.4 mg/dL (8.5-10.1); Creatinine, Blood 1.52 mg/dL (0.40-1.00); Globulin, Blood 3.7 g/dL (2.2-4.0); Magnesium, Blood 1.2 mg/dL (1.6-2.4); Phosphorus, Blood 3.8 mg/dL (2.5-4.9); Total Protein, Blood 5.9 g/dL (6.4-8.2)
[2022-06-02 05:55] LABS: BAND PERCENT MAN 14 % (0-8); BASOPHILS PERCENT MAN 0 % (0-2); EOSINOPHILS PERCENT MAN 0 % (0-6); LYMPHOCYTES ABSOLUTE MAN 3.17 K/mm3 (0.84-5.20); LYMPHOCYTES PERCENT MAN 6 % (21-46); MONOCYTES ABSOLUTE MAN 2.64 K/mm3 (0.16-1.47); MONOCYTES PERCENT MAN 5 % (4-13); NEUTROPHILS ABSOLUTE MAN 47.04 K/mm3 (1.96-9.15); SEG NEUTROPHILS PERCENT MAN 75 % (41-73); TOTAL CELLS COUNTED 100
--- NOTE | 2022-06-02 08:20 | NUR ---
AM NOTE... ASSUMED CARE OF PT AT 0700, THE PT IS ON A PRECEDEX GTT AT 1.4MCG/KG, THE PT WAKES TO ANY TYPE OF STIMULI, YELLS AND MOANS OUT, PULLS ON THE RESTRAINTS AND ATTEMPTS TO GET OUT OF BED. THE PT IS IN SR IN THE 60'S. PT IS ON LEVOPHED AT 8MCG AT THE START OF THIS SHIFT THIS WAS TITRATED DOWN TO 4MCG TO KEEP MAPS >65. NO EDEMA IS NOTED ON ASSESSMENT. THE PT IS ON RA WITH O2 SATS >95% L/S CLEAR T/O DIM IN THE BASES RR IS 16-20. BT PRESENT AND HYPOACTIVE, ABD IS SOFT TO PALPATION. THE PT'S MAGANA IS PATENT AND DRAINING TO GRAVITY. WILL CONTINUE TO MONITOR.
--- NOTE | 2022-06-02 11:27 | NUR ---
Pt's son and granddaughter at at the bedside this morning. The pt's condition appears to be further deteriorating. She is exhibiting s/s of anxiety and pain, grimacing, moaning and face is flushed. She is restless, swinging her legs over the railing, but unable to redirect her. Family have elected to begin comfort care for pt, as family was no planning to take her home on hospice upon discharge. Due to her current symptoms, their goal for her has changed to focusing on comfort now. Received v/o from Dr. Vargas. Orders placed, bedside RN Dora is aware. Will continue with supportive visits and symptom management as needed.
--- NOTE | 2022-06-02 11:34 | NUR ---
PT UPDATE... PALLIATIVE CARE RN AT THE BEDSIDE ALONG WITH THIS RN. SHE SPOKE WITH THE PT'S SON AND GRANDDAUGHTER AND THEY DECIDED TO MAKE THE PT COMFORT CARE.
--- NOTE | 2022-06-03 03:26 | NUR ---
PT TX TO ROOM 226 FROM ICU 14. PT SOMULANT, AWAKENS TO VERBAL AND PHYSICAL STIMULI. MEPILEX PALCED TO COCCYX, PT REPOSITIONED IN NEW BED. BED ALARM ON. NO PAIN OR DISTRESS NOTED AT THIS TIME.
--- NOTE | 2022-06-03 07:31 | NUR ---
PT APPEARS TO BE RESTING COMFORTABLY AT THIS TIME; NO DISTRESS NOTED. PT REPOSITIONED FOR COMFORT. BED ALARM ON. FAMILY UPDATED ON ROOM CHANGE. BEDSIDE REPORT GIVEN TO AYSHA WREN.
--- NOTE | 2022-06-04 06:24 | NUR ---
PT MEDICATED FOR PAIN AND ANXIETY PER EMAR. PT AWAKE AND YELLING OUT AT TIMES UNTIL APPX 2200, APPEARED TO REST COMFORTABLY T/O NIGHT. PT REPOSITIONED FOR COMFORT DURING NIGHT. NO PO INTAKE EXCEPT FOR MEDS. ORAL CARE PROVIDED PRN. APPX 100ML UO THIS SHIFT. BED ALARM ON FOR SAFETY.
--- NOTE | 2022-06-04 07:57 | NUR ---
PT APPEARS TO BE RESTING COMFORTABLY AT THIS TIME. PT QUIET, APNIC SPELLS INCREASED FROM PREVIOUS SHIFT WHILE SLEEPING-APROX 9-12 SEC. WHEN AWAKE PT HAS A MORE NORMAL BREATHING PATTERN. PER FAMILY REQUEST PT WILL NOT BE REPOSITIONED IF RESTING, WILL CONTINUE TO REPOSITION NEEDED FOR COMFORT WHILE AWAKE.
--- NOTE | 2022-06-04 08:51 | NUR ---
Spiritual Care Visit. Pt. is resting and non repsonsive. Pt. is comfort care and no family are present. Prayed for Pt. Charge nurse will contact this bicycle racer when other family arrive. Will remain available to Pt. and family.
--- NOTE | 2022-06-04 12:10 | NUR ---
"Spiritual Care | Nurse request Pt. is comfort care and is not responsive. Nurse requested S.C. for the family members present. Pts. son and granddaughter are present. Son displays evidence of some anxiety, and granddaughter appropriate grief. Both display evidence of understanding the Pt. is close to final transition. Facilitate a life review and establish rapport. Blessed the Pt. on the basis of her historic michaela, and prayed for family present. Family verbalized gratitude for the spiritual care visit. Family verbalized gratitude for the spiritual care visit. NOTE: Family has chosen in advance [facility] for services."
--- NOTE | 2022-06-04 14:01 | NUR ---
Pt appears to be resting comfortably. No current needs identified. Placed call to pt's son Geovany for a supportive visit, went to voicemail. Message left.
--- NOTE | 2022-06-04 20:01 | NUR ---
SHIFT SUMMARY PT APPEARED COMFORTABLE T/0 SHIFT WITH ROXANOL, TYLENOL, ATIVAN X'S 2 T/O SHIFT. PER FAMILY PT REOSITIONED ONLY WHILE AWAKE AND DID NOT TOLERATE LAYING ON R SIDE. PILLOWS SHIFTED DURING MED ADMINISTRATION. SPIRITUAL CARE IN WITH FAMILY AT NOON ASSESSMENT. FAMILY REQUESTS [facility] FOR FINAL DC.
--- NOTE | 2022-06-05 06:19 | NUR ---
PT HAD INC SECRETIONS THIS AM, SCOPALAMINE PATCH PLACED APPX 0240. PT MEDICATED FOR SECRETIONS AND AIR HUNGER JUST AFTER 0400 THIS AM, REPOSITIONED IN BED W/MINIMAL RESPONSE. THIS RN ROUNDED AGAIN AT 0430, PT FOUND TO HAVE PASSED. SECOND RN JAYCE ANGUIANO IN TO VERIFY ABSENCE OF HR. HOSPITALIST AND NURSING [employer] NOTIFIED. CALL PLACED TO SON REX. PER SON FAMILY HAS PREV ARRANGEMENTS W/[facility]. PT PICKED UP BY MORTUARY ATTENDANT ROSY GARBER AT APPX 0610. ALL BELONGINGS SENT W/PT.
== END 2022-06-05 06:09 | DRG 871 ==
LOC: ER 15:43 → SURS 18:46 → ICUW 18:46 → SURS 06-03 03:25
PROVIDERS: Emergency Medicine; Internal Medicine; Internal Medicine Critical Care Medicine; ADMIT Hospitalist
PROC: 3E03329 Introduction of Other Anti-infective into Peripheral Vein, Percutaneous Approach (ICD-10-PCS; principal; 2022-05-31)
PROC: 3E033XZ Introduction of Vasopressor into Peripheral Vein, Percutaneous Approach (ICD-10-PCS; 2022-05-31)
PROC: 02HV33Z Insertion of Infusion Device into Superior Vena Cava, Percutaneous Approach (ICD-10-PCS; 2022-05-31)
PROC: 3E02340 Introduction of Influenza Vaccine into Muscle, Percutaneous Approach (ICD-10-PCS; 2022-05-31)
PROC: 5A09457 Assistance with Respiratory Ventilation, 24-96 Consecutive Hours, Continuous Positive Airway Pressure (ICD-10-PCS; 2022-05-31)
DX: A41.51 Sepsis due to Escherichia coli [E. coli] (principal); G92.8 Other toxic encephalopathy; J96.01 Acute respiratory failure with hypoxia; R65.21 Severe sepsis with septic shock; J18.9 Pneumonia, unspecified organism; K72.00 Acute and subacute hepatic failure without coma; I50.33 Acute on chronic diastolic (congestive) heart failure; J69.0 Pneumonitis due to inhalation of food and vomit; N39.0 Urinary tract infection, site not specified; N17.9 Acute kidney failure, unspecified; F03.911 Unspecified dementia, unspecified severity, with agitation; I13.0 Hypertensive heart and chronic kidney disease with heart failure and stage 1 through stage 4 chronic kidney disease, or unspecified chronic kidney disease; Z51.5 Encounter for palliative care; Z20.822 Contact with and (suspected) exposure to COVID-19; Z66 Do not resuscitate; Z78.1 Physical restraint status; Z23 Encounter for immunization; K90.0 Celiac disease; I35.0 Nonrheumatic aortic (valve) stenosis; F32.A Depression, unspecified; M19.90 Unspecified osteoarthritis, unspecified site; I48.91 Unspecified atrial fibrillation; R19.7 Diarrhea, unspecified; N18.30 Chronic kidney disease, stage 3 unspecified; E11.22 Type 2 diabetes mellitus with diabetic chronic kidney disease; Z90.710 Acquired absence of both cervix and uterus; Z90.722 Acquired absence of ovaries, bilateral; Z98.49 Cataract extraction status, unspecified eye; Z98.890 Other specified postprocedural states; Z87.891 Personal history of nicotine dependence; Z88.0 Allergy status to penicillin; Z88.2 Allergy status to sulfonamides; Z79.4 Long term (current) use of insulin; Z79.899 Other long term (current) drug therapy
CPT/HCPCS: 0241U; 36415; 36556; 51702; 71045; 80048; 80053; 80076; 81001; 82330; 82803; 82947; 83520; 83605; 83735; 83880; 84100; 84439; 84481; 84484; 85025; 87040; 87077; 87086; 87186; 90686; 93005; 93010; 93306; 94660; 96365-59; 96366-59; 96375-59; 99285-25; A9270; C1751; G0008; J0692; J0696; J1170; J1630; J1650; J1815; J2060; J2270; J3475; J7030; J7040; J7050; J7060; J7120